=== PATIENT | male | born 1940 | race Caucasian/White ===

== ENCOUNTER → 2016-05-02 | Outpatient (CLI) | payer MEDICARE, MEDICAID ==
[~2016-05-02] MED LIST: ADVAIR DIS1 PUFF/DO1 IH; CEFDINIR300 MG PO; CRESTOR10 MG PO; DELTASONE DPS10 MG PO; DESYREL-DPS50 MG PO; DULCOLAX-DPS10 MG PO; DULERA 200/58.8 GM IH; DUONEB DPS3 ML IH; ELIQUIS2.5 MG PO; FEOSOL-DPS325 MG PO; GLUCOPHAGE-DPS500 MG PO; HYDROCODONE 5MG/5 MG PO; KLOR-CON M2020 ME1 PO; LASIX DPS40 MG PO; LASIX40 M1 PO; LIPITOR DPS40 MG PO; LOPRESSOR DPS100 MG PO; LOPRESSOR100 MG PO; MAALOX DPS30 ML PO; MAXZIDE 37.5 M1 EACH PO; MELATONIN5 MG PO; MIRALAX17 GM PO; OMNICEF DPS300 MG PO; PAXIL20 MG PO; PENICILLIN V P250 MG PO; PENICILLIN V P500 MG PO; PRILOSEC DPS20 MG PO; PRILOSEC20 MG PO; PROTONIX40 MG PO; PROVENTIL HFA6.7 GM IH; PROVENTIL2.5 MG/3 M IH; SALINE NASAL SP88 ML NS; SURFAK DPS240 MG PO; SURFAK240 MG PO; SYMBICORT 16010.2 GM IH; TYLENOL DPS325 MG PO; TYLENOL325 MG PO; ULTRAM DPS50 MG PO; XARELTO15 MG PO; ZESTRIL2.5 MG PO; ZITHROMAX250 MG PO
== END | disposition home or self-care (01) ==
LOC: PTH.S 04-29 09:00
DX: Z51.81 Encounter for therapeutic drug level monitoring (principal); Z79.01 Long term (current) use of anticoagulants